=== PATIENT | female | born 1945 | race Caucasian/White ===

== ENCOUNTER 2018-05-24 06:13 | Day surgery (SDC) | payer OTHER ==
[2018-05-21 12:16] LABS: Absolute Lymphocytes (CBC) 1.8 K/uL (0.7-4.9); Absolute Monocytes 0.5 K/uL (0.1-1.3); Basophils % 1.3 % (0-1.3); Eosinophils % 2.5 % (0-4.4); Hematocrit 44.6 % (36.0-45.0); Lymphocytes % 27.7 % (15.3-44.8); MPV 8.8 fL (7.6-11.3); Monocytes % 7.2 % (3.3-12.3); RBC Red Blood Cell Count 4.96 M/uL (3.86-4.86)
[2018-05-21 12:16] LABS: Urine Appearance CLEAR; Urine Bilirubin NEGATIVE (NEG); Urine Blood NEGATIVE (NEG); Urine Color YELLOW; Urine Glucose NEGATIVE (NEG); Urine Protein NEGATIVE (NEG); Urine Specific Gravity 1.015 (1.005-1.030); Urine Urobilinogen 0.2 mg/dL (0.2-1.0); Urine pH 5.5 (5.0-7.0)
[2018-05-21 12:23] LABS: Urine Microscopic Reflex NO UMIC
[2018-05-21 12:30] LABS: Protime INR 0.92
[2018-05-21 12:32] LABS: Potassium 4.3 mmol/L (3.5-5.1)
--- OUTSIDE RECORDS SUMMARY | 2018-05-24 06:20 | XMS REPORT ---
:1945 [facility] Address [address] [place] [address] Dr. Rick [address] [place] [id number] Care Team Providers Name Role Phone Unavailable Unavailable Unavailable Problems This patient has no known problems. Allergies, Adverse Reactions, Alerts This patient has no known allergies or adverse reactions. Medications This patient has no known medications.
[2018-05-24] MEDS ORDERED: Ringers Lactate 1,000 ML IV ONE ×2 (06:46→08:59)
[2018-05-24] MEDS ORDERED: ROCURONIUM 50 MG/5 ML VIAL IV ONE (07:25)
[2018-05-24] MEDS ORDERED: PROPOFOL 200 MG/20 ML VIAL IV ONE (07:25)
[2018-05-24] MEDS ORDERED: FENTANYL CITR 250 MCG/5 ML ONE (07:26)
[2018-05-24] MEDS ORDERED: LIDOCAINE 2% MPF 5 ML VIAL ONE (07:26)
[2018-05-24] MEDS ORDERED: ONDANSETRON 4 MG/2 ML VIAL ONE ×2 (07:27→09:50)
[2018-05-24] MEDS ORDERED: NA CHLORIDE 0.9% 100 ML IV ONE (07:28)
[2018-05-24] MEDS ORDERED: CEFAZOLIN/SWI 1gm 0 GM/0 ML SYR ONE (07:29)
[2018-05-24] MEDS ORDERED: VASOPRESSIN 20 UNIT/ML VIAL ONE (07:29)
[2018-05-24] MEDS: CEFAZOLIN/SWI 2gm 2 GM/20 ML SYR ONE ×2 (07:36→07:37)
[2018-05-24] MEDS ORDERED: SCOPOLAMINE HYDROBROMIDE PATCH TD ONE (07:43)
[2018-05-24] MEDS ORDERED: DEXAMETHASONE 10 MG/ML VIAL ONE (08:08)
[2018-05-24] MEDS ORDERED: EPHEDRINE SULF 50 MG/ML VIAL ONE (08:51)
[2018-05-24] MEDS ORDERED: GLYCOPYRROLATE 0.2 MG/ML SYR ONE (09:11)
[2018-05-24] MEDS ORDERED: NEOSTIGMINE 1 MG/ML -10 ML VIAL ONE (09:12)
[2018-05-24] MEDS ORDERED: CEFAZOLIN/SWI 1gm 1 GM/10 ML SYR ONE (11:46)
[2018-05-24] MEDS ORDERED: HYDROMORPHONE HCL 1 MG/ML INJ IV PRN (11:46)
[2018-05-24] MEDS ORDERED: ACETAMINOPHEN 500 MG TAB PO PRN (11:46)
[2018-05-24] MEDS ORDERED: MIDAZOLAM HCL 2 MG/2 ML INJ ONE (11:47)
[2018-05-24] MEDS ORDERED: ONDANSETRON 4 MG/2 ML VIAL IV PRN (11:53)
[2018-05-24] MEDS ORDERED: MECLIZINE HCL 12.5 MG TAB PO ONE (12:00)
--- NOTE | 2018-05-24 12:01 | P.BOP ---
Preoperative diagnosis: stage 2 anterior and posterior wall, uterine prolapse, RADHA Postoperative diagnosis: same and posterior enterocele, perineocele Primary procedure: A&P repair, right SSLF colpopexy, post enterocele/ perineocele repair Secondary procedure: MUS cysto (TVT-O), partial trachelectomy Clinical Team Manager: Jodi Mayfield Estimated blood loss: 100 Specimen: cervix Findings: 0/-1/+1/5/mod/7/-1/0/0 Anesthesia: General Complications: None Drain(s): Urinary catheter Implants: TVT-O Transferred to: Recovery Room Condition: Good
[2018-05-24] MEDS ORDERED: PROMETHAZINE 25 MG/ML VIAL ONE (12:10)
[2018-05-24] MEDS ORDERED: METOCLOPRAMIDE 10 MG/2mL INJ ONE (12:41)
[2018-05-24] MEDS: MECLIZINE HCL 12.5 MG TAB PO SCH ×2 (14:00→21:05)
[2018-05-24] MEDS ORDERED: IBUPROFEN 400 MG TAB ONE (14:14)
[2018-05-24] MEDS: Ringers Lactate 1,000 ML IV SCH (16:30)
[2018-05-24] MEDS ORDERED: KETOROLAC 30 MG/ML INJ IV PRN (21:50)
--- NOTE | 2018-05-24 21:57 | P.CNS ---
Date of Consult: 05/24/18 Requesting Physician: Karyn Aguirre Chief Complaint: dizziness, nausea History of Present Illness: Ms Granda ins a 72 years old woman with history of hypothyroidism, vertigo medicated with schedule Meclizinde several times a day, who was admitted to the hospital to have a programed enterocele and perineocele repair. The procedure was done successfully today by Dr Aguirre. However, after the surgery, the patient start with dizziness, headache and nausea. Her symptoms were similar to her usual vertigo episode. At my encounter, the patient already was treated with Meclezine and Zofran, significantly improving her symptoms. VS are stable. Allergies codeine Adverse Reaction (Verified 05/21/18 11:42) Nausea/Vomiting hydrocodone Adverse Reaction (Verified 05/24/18 06:22) Nausea/Vomiting tramadol Adverse Reaction (Verified 05/24/18 06:21) Nausea/Vomiting Home medications list reviewed: Yes Home Medications: Cranberry 500 mg PO BID 05/21/18 L.acidoph,Paracasei, B.lactis [Probiotic] 1 each PO DAILY 05/21/18 Magnesium Oxide [Magnesium] 500 mg PO DAILY 05/21/18 Meclizine HCl 25 mg PO TID 05/21/18 Multivitamin [Multivitamins] 1 each PO DAILY 05/21/18 Thyroid,Pork [[place] Thyroid] 60 mg PO DAILY 05/21/18 - Past Medical/Surgical History Diabetic: No -: hypothyroidism -: vertigo -: arthritis -: sharif julien 2003 - Family History Father Medical History: Other (see notes) Notes: vertigo - Social History Alcohol use: No CD- Drugs: No Caffeine use: No Place of Residence: Home Review of Systems 10-point ROS is otherwise unremarkable Physical Examination Temp Pulse Resp BP Pulse Ox 98.3 F 95 H 16 109/90 05/24/18 14:39 05/24/18 14:39 05/24/18 14:39 05/24/18 14:39 General: Alert, In no apparent distress HEENT: Atraumatic, PERRLA, Mucous membr. moist/pink, Other (no nistagmus.), EOMI , Sclerae nonicteric Neck: Supple, 2+ carotid pulse no bruit, No LAD, Without JVD or thyroid abnormality Respiratory: Clear to auscultation bilaterally, Normal air movement Cardiovascular: Regular rate/rhythm, Normal S1 S2 Gastrointestinal: Normal bowel sounds, No tenderness Musculoskeletal: No tenderness Integumentary: No rashes Neurological: Normal speech, Normal tone, Normal affect Lymphatics: No axilla or inguinal lymphadenopathy - Problems (1) Vertigo Current Visit: Yes Status: Acute (2) Enterocele Current Visit: Yes Status: Acute (3) Hypothyroidism Current Visit: Yes Status: Acute Qualifiers: Hypothyroidism type: unspecified Qualified Code(s): E03.9 - Hypothyroidism , unspecified Critical Care: No Time Spent Managing Pts care (In Minutes): 40
[2018-05-25] MEDS: Ringers Lactate 1,000 ML IV SCH ×2 (02:32→04:00)
[2018-05-25] MEDS ORDERED: THYROID 30 MG TAB PO SCH (06:00)
[2018-05-25 07:30] LABS: Absolute Lymphocytes (CBC) 1.9 K/uL (0.7-4.9); Absolute Neutrophil 9.2 K/uL (1.8-8.0); Basophils % 0.2 % (0-1.3); Eosinophils % 0.3 % (0-4.4); Hematocrit 35.7 % (36.0-45.0); Lymphocytes % 15.4 % (15.3-44.8); MPV 8.8 fL (7.6-11.3); RBC Red Blood Cell Count 3.92 M/uL (3.86-4.86)
[2018-05-25] MEDS: MECLIZINE HCL 12.5 MG TAB PO SCH (08:57)
[2018-05-25] MEDS ORDERED: MAGNESIUM OXIDE 400 MG TAB PO SCH (09:00)
--- NOTE | 2018-05-25 10:05 | P.PN ---
Subjective Date of Service: 05/25/18 Primary Care Provider: Dr. Umanzor; PROFESSOR OF ANTHROPOLOGY-Dr. Aguirre Chief Complaint: dizziness, nausea Subjective: Other (Patient doing well at this time. No complaints noted. Dizziness controlled with meclizine) Physical Examination - Vital Signs Temperature: 97.6 F Blood Pressure: 133/72 Pulse: 108 Respirations: 16 Pulse Ox (%): 93 - Physical Exam General: Alert, In no apparent distress, Oriented x3, Cooperative HEENT: Atraumatic Neck: Supple Respiratory: Clear to auscultation bilaterally, Normal air movement Cardiovascular: Normal pulses, Regular rate/rhythm Gastrointestinal: Normal bowel sounds, Soft and benign, Non-distended Neurological: Normal speech, Normal strength at 5/5 x4 extr, Normal tone, Normal affect - Studies Laboratory Data (last 24 hrs) 05/25/18 06:51: WBC 12.1 H D, Hgb 12.2 D, Hct 35.7 L D, Plt Count 297 Medications List Reviewed: Yes Assessment & Plan Discharge Plan: Home Plan to discharge in: 24 Hours Physician Review Additional Text: Impression: Stage II anterior and social media editor wall uterine prolapse status post surgical gynecological repair Chronic vertigo likely with underlying Meniere's disease Hypothyroidism Plan: Anticipate discharge by and gynecology later today. Patient medically stable at this time. Patient has seen ENT in the past for her chronic vertigo. She has not followed up with ENT in quite some time. Will recommend that she follow up with ENT to establish care and to further address her chronic vertigo. Patient may continue with meclizine at this time. Patient may benefit with physical therapy as an outpatient for specific treatment for vertigo. Patient with underlying hypothyroidism. She will continue with her medication. Will follow along with gynecology. Okay to discharge from a medical standpoint. Time Spent Managing Pts Care (In Minutes): 55
--- NOTE | 2018-05-28 03:16 | OP ---
Date of Procedure: 05/24/2018 Surgeon: Karyn Aguirre MD Manager Benefit: Jodi Mayfield. Preoperative Diagnoses: Stage III incomplete uterovaginal prolapse, level 1 prolapse is the most sig nificant defect. Cystocele, rectocele, anterior and posterior wall defects, perineal body defect, an d occult stress urinary incontinence. Postoperative Diagnoses: Stage III uterovaginal prolapse; anterior and posterior wall defects, poste rior wall stage II; posterior enterocele; cervical hypertrophy. Procedures Performed: 1.Anterior repair. 2.Posterior repair with enterocele repair and perineorrhaphy. 3.Partial trachelectomy. 4.Right sacrospinous ligament fixation, cervicopexy. 5.Mid urethral sling (TVT-O), cystoscopy. Estimated Blood Loss: 100. Specimens: Cervix. Complications: No complications. Drains: Monique catheter and vaginal packing. Condition: Stable. Findings: POP-Q 0, 0, +2, 5, moderate, 7, -1, 0, 0. Cervical hypertrophy with anterior lip much mor e enlarged than the posterior with nabothian glands on it. So, the cervix was trimmed down to decompress the size of it, so it would not be as large and be less obvious post cervicopexy. Anterior and posterior repairs were performed with primary repair. No gr afts used other than during the sling procedure, a polypropylene TVT-O was used. Indications For Procedure: The patient is a 72-year-old with vaginal prolapse symptoms. She decline d use of pessary, wanted surgical repair. She had urodynamic testing during which most of the test w as unremarkable. Her PVR was 100 at one time, but during the test, it was less than 10 mL with over 300 voiding. She had occult RADHA and so we counseled about mid urethral sling at the time of the prol apse repair and she was consented for that. Cystoscopy was performed. No evidence of any bladder tumors, diverticula, or stones. The patient's prolapse was then evaluated. She was counseled for a pessary trial, she declined as she wanted surgi jeanie repair, so proposed to do an anterior repair with apical repair with preservation of the uterus s lizet she had no postmenopausal bleeding or any uterine pathology. Synthetic vaginal graft was to be used. However, due to the ban of this by the FDA 36 hours prior to her procedure, which was a surpri se that was not anticipated. The patient was counseled after completely understanding the nature of the mandates that were to be implemented. After this, I discussed all this with the patient on the d ay of the surgery, offered her the options of considering a supracervical hysterectomy with a sacroco lpopexy, abdominal approach through the laparoscope versus observation without proceeding with the pr ocedure besides doing a creek tissue repair with sacrospinous fixation and anterior-posterior repair . The patient wanted to proceed with the anterior-posterior repair, vaginal repair with cervical col popexy, and if there is a recurrence, then we would discuss the abdominal option. Description Of Procedure: After re-consenting the patient, the patient was taken back to the OR. 2 g of Ancef were given. She was placed in a supine position on the operating table. General anesthes ia was given. She was then placed in a dorsal lithotomy position using Domenico stirrups. Positioning was checked. Lower abdomen, vulva, vagina, and perineum were prepped and draped in a sterile fashion . Evaluation of the prolapse showed that she had more of an apical and posterior prolapse than the a nterior. The anterior was readily reduced. Then, the cervix with Allis clamps was pushed back to th e level of the ischial spine on the right side. So, it appeared that the posterior repair could be e asily done with the help of sutures, possibly a site-specific repair and posterior enterocele repair with a good perineorrhaphy. The risk of recurrence for this patient could be the least with this usha valadez. After lower abdomen, vulva, vagina, and perineum were prepped and draped in a sterile fashion, Monique was placed to drain the bladder and retracted superiorly after it was clamped with a Mirella. The blad milady neck was identified. An Allis was placed just inferior to it and another Allis placed right on t he cervix anterior lip, which was hypertrophied, so a lambdoid incision was made. A vertical incisio n in the midline about 5 cm. The vaginal epithelium and sub-epithelium were from the under lying fascia. The bladder and the endopelvic fascia were all reduced on both sides. The cervix was exposed in the lambdoid incision. Then, there was another similar incision that was made at the inocente om of the lambda. So, a crescent-shaped piece of the anterior lip was removed to decompress the cerv ix and this was stitched in a transverse fashion with a continuous running 0 Vicryl stitch. Then, on ce the bladder was all reduced at the bladder neck, 2-0 Vicryl sutures were placed for Mirella plicatio n. Then, the bladder and the endopelvic fascia were plicated from side to side with interrupted 2-0 Vicryl sutures. Then, the vaginal epithelium and sub-epithelium were closed with the help of 2-0 Yinka ryl in a continuous running horizontal mattress fashion. This procedure was completed. The cervix w as decompressed. The anterior compartment was in place and the posterior part was started. After dilute vasopressin was injected 30 cc at the perineum and on the posterior midline all the way to the apex, a triangular skin incision was made to do the perineorrhaphy. The scar tissue was dense right on the inside of the vestibule. There was a site-specific defect of the distal part of the re ctovaginal septum attaching to the perineal body. The perineal body was also wide. The superficial and deep transverse perineum were . So, once a triangular skin incision was made and the sk in was removed, the perineal body was dissected laterally. The medial scar was removed. Then, both transverse perinei and levators were identified. Then, posterior midline incision was carried all th e way to the top. The vaginal epithelium and sub-epithelium were from the rectovaginal sep edwina. There was a large posterior enterocele on the top. Once I dissected this all the way to the le laurita of the cervix, the posterior enterocele sac was isolated; without opening it, this was circumfere ntially with 3-0 Vicryl plicated with a pursestring suture in 2 rounds. Once this was well reduced, the right sacrospinous ligament was cleaned up after reaching this ischial spine with my forefinger. The pararectal space was entered. The coccygeus muscle was cleaned out and the sacrospinous ligamen t was palpated. Then, pushing the rectum medially, the ligament was easily palpable. Then, using e Capio device, 2 Prolene sutures were placed, one in the mid ligament, the other in the medial aspec t of it between the spine and the mid ligament stitch. These 2 were in the sacrospinous ligament wit h the Capio device without any problems without hooping all around adjusting on the anterior surface, but had a good bite on both stitches. These were retracted on 2 different clamps by marking a media l and lateral stitch. Then, the cervix was dissected. The area of the cervix where the uterosacral would be attached was identified with Allis clamps and stitches of the medial one were first put thro ugh the more proximal part and then the lateral one through the distal part of this right and left si abida of the cervix. Once these sutures were placed, the 2 stitches were retracted again with their re spective clamps. Then, posterior repair was performed with interrupted 2-0 Vicryl sutures from side to side just to bring together the attenuated rectovaginal septum. The distal part had to be first a pproached by fixing the perineal body. So, the perineal body sutures were placed by placing one ring in the rectum, one in the vagina, and placing interrupted 2-0 PDS sutures x4 to the distal part of t he levators, then the deep transverse perinei and superficial transverse perinei, and the perineal kirt dy was reconstructed and sutures were tied down after changing the gloves. Then, the distal part of the rectovaginal septum was attached with the help of 2-0 PDS. Two separate sutures were placed here in a hathvy-yd-orvum fashion once this was reattached to the perineal body. The width of the genita l hiatus was only about 3.5 cm, which was optimal and with a good perineal body. The vaginal epithelium was slightly trimmed on the right side. The left was left alone. Only the pr evious scar was trimmed very mildly. Then, closure of the vaginal epithelium was started for about 3 cm with a 2-0 Vicryl in a continuous running locked fashion. Then, the sacrospinous sutures were ti ed down. Then, I went ahead and finished the rest of the closure. The perineal area was sutured wit h the help of 3-0 Vicryl in a subcutaneous fashion, subcuticular fashion, discharge inside the vestib ule. The rectal exam was performed. No evidence of any injury or foreign body. The gloves were changed a gain and cystoscopy was performed. No evidence of any obstruction to the ureteric orifices. There w ere strong jets of urine from both and no foreign body. The Monique was replaced. The Mirella clamp was placed again. Then, the mid urethral area was held with 2 Allis clamps. After placing the patient' s lower extremities in high lithotomy, marking points for the exit of the TVT-O were made 2 cm latera l, 1 cm above the horizontal line dropped at the level of the external urethral meatus, making sure t his was below the adductor tendon on both sides. Then, I went through with hydro dissecting with dil [place] vasopressin in the midline and on both sides. Then, once the 15 blade was used to make a 1 cm in cision, [place] were used to make tracts on each side by dissecting at 45 degrees angle to the horizonta l and vertical planes, hugging the inferior pubic ramus entering the obturator space after perforatin g the obturator membrane. The tips of the scissors were opened up and the tract was expanded. On th e opposite side, similar dissection was performed. After the TVT-O kit was opened up, the wing guide was placed through the obturator membrane and the spike was passed, then it was turned in an appropr iate fashion for the handheld version in the vertical plane. The exit point was at the place that wa s marked. Once the plastic dilator was pulled, similar pass was placed on the other side. Plastic d ilators were cut. The sheath and the mesh were held with a Mirella. Then, the sling was tensioned wit h the help of the [place] in the mid urethral area. The sheaths were pulled out. The mesh was trimmed very flushed with the skin. There was excellent tensioning. Thorough irrigation and suction were pe rformed, and the epithelium was closed with the help of 3-0 Vicryl in a continuous running fashion. The skin incisions were closed with Dermabond. Cystoscopy was performed. Urethra, bladder unremarka ble. No foreign body or injury to the bladder. The bladder was drained. Monique was replaced. Vagin al packing was placed. The patient was recovered from anesthesia and taken to the PACU in stable con dition. Instrument, needle, and sponge counts x3 were correct at the end of the case. The patient t olerated the procedure well. She will follow up with me in 1 week. KRISTEL Voice ID: [id number] Report ID: [id number]
== END 2018-05-25 10:58 | disposition home or self-care (01) ==
LOC: OR 06:13 → 2ND-WC 11:47 → 2ND 11:47 → OR 05-25 10:58
PROVIDERS: ATTEND Obstetrics & Gynecology
PROC: 0JQC0ZZ Repair Pelvic Region Subcutaneous Tissue and Fascia, Open Approach (ICD-10-PCS; 2018-05-24)
PROC: 0UQF0ZZ Repair Cul-de-sac, Open Approach (ICD-10-PCS; 2018-05-24)
PROC: 0WQNXZZ Repair Female Perineum, External Approach (ICD-10-PCS; 2018-05-24)
PROC: 0UTC0ZZ Resection of Cervix, Open Approach (ICD-10-PCS; 2018-05-24)
PROC: 0TSD0ZZ Reposition Urethra, Open Approach (ICD-10-PCS; 2018-05-24)
PROC: 0USG7ZZ Reposition Vagina, Via Natural or Artificial Opening (ICD-10-PCS; 2018-05-24)
PROC: 0JQC0ZZ Repair Pelvic Region Subcutaneous Tissue and Fascia, Open Approach (ICD-10-PCS; principal; 2018-05-24 07:30)
DX: N72 Inflammatory disease of cervix uteri (principal); N88.8 Other specified noninflammatory disorders of cervix uteri; N81.3 Complete uterovaginal prolapse; N39.3 Stress incontinence (female) (male); K66.8 Other specified disorders of peritoneum; E03.9 Hypothyroidism, unspecified; N95.2 Postmenopausal atrophic vaginitis; H81.12 Benign paroxysmal vertigo, left ear; Z79.899 Other long term (current) drug therapy
CPT/HCPCS: 57265; 57530; 57288; 57282; 85025 ×2; 80048; 36415 ×2; 86900; 86850; 85610; 86901; 88305; 85730; 81003; J2704; J2710; J2765; J2550; J2250; J3010; J1100; J1170; J0690 ×2; J2405 ×3